=== PATIENT | male | born 1935 | race Caucasian/White ===

== ENCOUNTER 2020-12-13 13:26 | Day surgery (SDC) | payer MEDICARE ==
[~2020-12-13] VITALS: Ht 175.3 cm; Wt 88.9 kg
[~2020-12-13 13:26] MED LIST: FAMO20TA5 PO; LORA1TAB4 PO; LOSA25TA14 PO; MECL1TAB31 PO; PANT40TA29 PO; PRED5PAK2 PO; ZYLO100T2 PO
[2020-12-13] MEDS ORDERED: VANCOMYCIN HCL 1,000 MG, VIAL MATE ADAPTER 1 EACH in NS 250 ML IV ONE (13:45)
[2020-12-13] MEDS ORDERED: ECOT81TA5 PO (13:49)
[2020-12-13] MEDS ORDERED: LR 1,000 ML IV SCH (13:50)
[2020-12-13] MEDS ORDERED: MIDAZOLAM INJ 2MG/2ML VIAL (J2250 PER 1MG) As Ordered ONE (14:33)
[2020-12-13] MEDS ORDERED: fentaNYL 100 MCG/2 ML INJECTION (J3010) As Ordered ONE (14:33)
[2020-12-13] MEDS ORDERED: LIDOCAINE 1% SDV 30ML VIAL As Ordered ONE (14:48)
[2020-12-13 16:25] VITALS: BP 126/58
--- NOTE | 2020-12-13 20:18 | RO ---
OPERATIVE NOTE DATE OF OPERATION: 12/13/2020 PREOPERATIVE DIAGNOSIS: Unexplained syncope. PREOPERATIVE DIAGNOSIS: Unexplained syncope. FINDINGS: Unexplained syncope. PROCEDURE PERFORMED: Implantation of subcutaneous cardiac rhythm monitor ([employer]). SURGEON: Ko Handley M.D. BAGGER AND STOCK HANDLER HELPER: None. ANESTHESIA: Lidocaine 1% local/monitored anesthetic care. SPECIMENS: None. ESTIMATED BLOOD LOSS: Less than 1 mL. BLOOD PRODUCTS: No blood products were placed. DRAINS: None. COMPLICATIONS: None. PROCEDURE DESCRIPTION: The patient was prepped and draped over the left anterior chest and sternum. Lidocaine 1% was used for local anesthetic. An incision approximately 1 cm in length was made with a #15 blade through the skin at the third left interspace, 1 inch lateral to the left parasternal border. The guide on the insertion tool was placed into the incision and advanced parallel to the chest wall in a caudal direction in the subcutaneous tissue. The insertion tool was rotated 180 degrees on its long axis. The punch was placed into the insertion tool and used to advance the subcutaneous cardiac rhythm monitor into the subcutaneous tissue. The punch tool was removed and then the insertion tool was removed leaving the cardiac rhythm monitor in situ. The initial R-wave amplitude measured 0.32 mV. P-waves were well visualized. The incision was then approximated temporarily with a 4-0 Biosyn suture applied subcuticular with the free margins protruding through the skin 1 cm from both ends of the incision line. Three layers of Dermabond were applied. The Biosyn suture was then pulled through the incision line and removed entirely. The patient tolerated the procedure well without any immediate complications. The subcutaneous cardiac rhythm monitor implanted was a [employer] Reveal LINQ II, model LNQ22. It had serial number [id number].
== END 2020-12-13 16:27 | disposition home or self-care (01) ==
LOC: M SDC 13:26
PROVIDERS: ATTEND Internal Medicine Cardiovascular Disease
DX: R55 Syncope and collapse (principal); I35.9 Nonrheumatic aortic valve disorder, unspecified; I10 Essential (primary) hypertension; I73.9 Peripheral vascular disease, unspecified; R94.31 Abnormal electrocardiogram [ECG] [EKG]; M10.9 Gout, unspecified; K21.9 Gastro-esophageal reflux disease without esophagitis; Z86.16 Personal history of COVID-19; Z88.0 Allergy status to penicillin; Z79.82 Long term (current) use of aspirin; Z79.899 Other long term (current) drug therapy
CPT/HCPCS: 33285; C1764; J2250; J3010; J3370